=== PATIENT | male | born 1985 | race African-American/Black ===

== ENCOUNTER 2018-08-04 08:29 | Outpatient (CLI) | payer OTHER ==
--- NOTE | 2018-08-04 16:42 | MRI Report ---
Reason: R ACHILLES TENDON PAIN SINCE JAN 2018 Procedure Date: 08/04/2018 Accession Number: [id number] / [id number] Procedure: MRI - Ankle RT W/O CPT Code: FULL RESULT: EXAM: RIGHT ANKLE/HINDFOOT MRI WITHOUT CONTRAST EXAM DATE: 08/04/2018 10:02 AM. CLINICAL HISTORY: Right Achilles tendon pain since January 2018 COMPARISON: None. TECHNIQUE: Multiplanar, multisequence T1-weighted and fluid-sensitive sequences of the ankle/hindfoot without contrast. Other: None. FINDINGS: Bones: No fractures or subluxations. No marrow edema. No bone lesions. Articular Cartilage: Unremarkable. Ligaments: The anterior tibiofibular ligament is thick, but intact. The posterior tibiofibular, talofibular, and calcaneofibular ligaments are intact. The deep and superficial deltoid and spring ligaments are intact. Anterior Tendons: The tibialis anterior, extensor hallucis longus, and extensor digitorum longus tendons are unremarkable. Medial Tendons: The tibialis posterior, flexor digitorum longus, and flexor hallucis longus tendons are unremarkable. Lateral Tendons: The peroneus brevis and longus are unremarkable. Achilles Tendon: There is mild fusiform thickening at the mid aspect of the Achilles tendon consistent with tendinosis. There is a small linear T2 hyperintense focus within the mid to distal aspect of the Achilles tendon suggestive of a low-grade partial tear. Musculature: No edema or fatty atrophy. Other: No effusions. The contents of the sinus tarsi and tarsal tunnel are unremarkable. No plantar fasciitis. The subcutaneous tissues are unremarkable. IMPRESSION: 1. Mild tendinosis and a low-grade partial tear at the mid aspect of the Achilles tendon. 2. Thick, but intact anterior tibiofibular ligament which may be from previous remote injury. [facility] MUSCULOSKELETAL RADIOLOGY SECTION
== END 2018-08-04 08:30 | disposition home or self-care (01) ==
LOC: DI 08:29
PROVIDERS: ATTEND Podiatrist
DX: S86.011A Strain of right Achilles tendon, initial encounter (principal)